=== PATIENT | female | born 1955 | race African-American/Black ===

== ENCOUNTER 2018-04-12 09:35 | Day surgery (SDC) | payer OTHER | END 2018-04-12 15:15 | disposition home or self-care (01) | LOC: AMB-ENDOS 09:35 | DX: D12.5 Benign neoplasm of sigmoid colon (principal); D12.8 Benign neoplasm of rectum; K64.8 Other hemorrhoids; K57.30 Diverticulosis of large intestine without perforation or abscess without bleeding ==

== ENCOUNTER 2021-05-06 08:49 | Day surgery (SDC) | payer OTHER | END 2021-05-06 13:45 | disposition home or self-care (01) | LOC: AMB-ENDOS 08:49 | PROVIDERS: ATTEND Surgery | DX: D12.5 Benign neoplasm of sigmoid colon (principal) ==